=== PATIENT | female | born 1960 | race Caucasian/White ===

== ENCOUNTER → 2022-04-19 15:06 | Outpatient (CLI) | payer OTHER, SELFPAY ==
--- NOTE | ~2022-04-19 | XR_ITS ---
XR humerus RT DATE: 04/19/2022 15:22 INDICATION: Fall off of ladder. Mid shaft bruising TECHNIQUE: 2 views COMPARISON: None FINDINGS: There is some lucency at the lateral humeral neck area and mild irregularity at the lateral margin of the greater tuberosity. Proximal humeral fracture is not excluded. Right shoulder radiogra phs are recommended for further evaluation. There is normal alignment at the right acromion clavicular, glenohumeral and elbow joints. No fractur e is noted otherwise. IMPRESSION: Cannot clear the right greater tuberosity and humeral neck of fracture; right shoulder ra diographic examination is recommended. Reviewed, dictated and finalized at location A. IMPRESSION: Cannot clear the right greater tuberosity and humeral neck of fract ure; right shoulder radiographic examination is recommended.
== END ==
PROVIDERS: PCP Family Medicine; Visit Provider Nurse Practitioner Family
DX: S49.91XA Unspecified injury of right shoulder and upper arm, initial encounter (principal)
CPT/HCPCS: 73060

== ENCOUNTER → 2022-04-20 14:39 | Outpatient (CLI) | payer OTHER, SELFPAY ==
--- NOTE | ~2022-04-20 | XR_ITS ---
EXAMINATION: XR shoulder RT min 2V DATE: 04/20/2022 15:01 INDICATION: Right shoulder pain. TECHNIQUE: 4 views of right shoulder were obtained. COMPARISON: None. FINDINGS: Bone alignment is normal. There is a nondisplaced fracture of greater tuberosity. The gleno humeral joint is normal. 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 IMPRESSION: 1. Nonspecific fracture of greater tuberosity of proximal right humerus. Reviewed, dictated and finalized at location A.
== END ==
PROVIDERS: PCP Nurse Practitioner Family; Visit Provider Nurse Practitioner Family
DX: S42.254A Nondisplaced fracture of greater tuberosity of right humerus, initial encounter for closed fracture (principal); M19.011 Primary osteoarthritis, right shoulder
CPT/HCPCS: 73030

== ENCOUNTER 2025-07-16 13:04 | Outpatient (CLI) | payer MEDICARE, SELFPAY ==
--- NOTE | ~2025-07-16 | DEXA_ITS ---
Bone Density Report Name: MORGAN LOPEZ Age: 64 Sex: Female Ethnicity: White Date of : 1960 Indication: postmenopausal; screening for osteoporosis; cancer; hysterectomy; Referring Provider: DONNA FIORE Study: Bone densitometry was performed. Exam Date: July 16, 2025 Accession number: [id number] Bone Density: Region BMD T-score Z-score Classification AP Spine(L1-L4) 0.971 -0.7 1.2 Normal Femoral Neck (Left) 0.670 -1.6 0.0 Osteopenia Total Hip (Left) 0.793 -1.2 0.1 Osteopenia Femoral Neck (Right) 0.608 -2.2 -0.6 Osteopenia Total Hip (Right) 0.781 -1.3 0.0 Osteopenia Total Hip Mean 0.787 -1.3 0.1 Osteopenia World Health Organization criteria for BMD impression classify patients as: Normal (T-score at or above -1.0), Osteopenia (T-score between -1.0 and -2.5), or Osteoporosis (T-score at or below -2.5). 10-year Fracture Risk(1): Major Osteoporotic Fracture 11% Hip Fracture 2.0% Reported Risk Factors: [place] (), Neck BMD=0.608, BMI=29.6 (1) FRAX(R) Version 3.08. Fracture probability calculated for an untreated patient. Fracture probability may be lower if the patient has received treatment. Previous Exams: -- Region Exam Age BMD T-score BMD Change BMD Change Date g/cm2 vs Baseline vs Previous -- AP Spine (L1-L4) 07/16/2025 64 0.971 -0.7 -7.2%* -7.2%* 06/23/2016 55 1.046 0.0 Total Hip(Left) 07/16/2025 64 0.793 -1.2 -9.0%* -9.0%* 06/23/2016 55 0.871 -0.6 Total Hip(Right) 07/16/2025 64 0.781 -1.3 -7.9%* -7.9%* 06/23/2016 55 0.848 -0.8 -- *Denotes significance at 95% confidence level, LSC for AP Spine = 0.022 g/cm2, LSC for Total Hip = 0.027 g/cm2 Clinical Information Provided by Patient: Has the following medical conditions: Cancer, Hysterectomy, breast cancer Patient maximum height was 63 Menopause Age: 36 No regular weight bearing exercise Drinks caffeinated beverages Onset of menses at age 8 Number of children 1 Impression: The patient has low bone mass, based on the Right Femoral Neck T-score. The patient has an estimated ten-year risk of hip fracture of 2% and an estimated ten-year risk of major fracture of 11%, based on the WHO FRAX algorithm. The BMD for the AP Spine (L1-L4) decreased, changing by -7.2% since the last DXA exam. The BMD for the Total Hip(Left) decreased, changing by -9.0% since the last DXA exam. The BMD for the Total Hip(Right) decreased, changing by -7.9% since the last DXA exam. Discussion: BONE DENSITY IS LOW AT ONE OR MORE SKELETAL SITES. This patient's lowest T-score is low at one or more skeletal sites. It meets the World Health Organization's (WHO) criteria for ?low bone mass? (T-score between -1.0 and -2.5). The patient's 10-year risk of fracture as calculated by FRAX is less than the threshold where pharmacological therapy is recommended by the National Osteoporosis Foundation (NOF). However, all treatment decisions require clinical judgment and consideration of individual patient factors, including patient preferences, comorbidities, previous drug use, risk factors not captured in the FRAX model (e.g., frailty, falls, vitamin D deficiency, increased bone turnover, interval significant decline in bone density) and possible under or overestimation of fracture risk by FRAX. The patient should follow a healthful lifestyle (good nutrition with adequate calcium and vitamin D, and appropriate weight-bearing exercise). Follow-Up: Consider repeating this study in 2 years to reassess this patient's status, or sooner if there is some new clinical indication. Reported by: YAZMIN on 07/16/2025 1:27:00 PM. Reviewed, dictated and finalized at location A.
== END 2025-07-16 13:05 | disposition home or self-care (01) ==
LOC: MICIMG 13:05
PROVIDERS: PCP Family Medicine; Visit Provider Nurse Practitioner Family
DX: M85.89 Other specified disorders of bone density and structure, multiple sites (principal); Z78.0 Asymptomatic menopausal state; Z13.820 Encounter for screening for osteoporosis
CPT/HCPCS: 77080